=== PATIENT | male | born 1985 ===

== ENCOUNTER 2017-07-17 01:50 | Observation (INO) | payer SELFPAY ==
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
[2017-07-17 04:29] LABS: BASO # 0.1 K/uL (0.0-0.2); BASO % 0.5 % (0.0-2.0); EOS # 0.1 K/uL (0.0-0.7); EOS % 0.7 % (0.0-4.0); HEMATOCRIT 47.1 % (35.0-51.0); LYMPH # 1.2 K/uL (1.0-4.3); LYMPH % 9.2 % (20.0-40.0); MEAN CELL VOLUME 87.1 fL (80.0-94.0); MEAN CORPUSCULAR HEMOGLOBIN 29.5 pg (27.0-31.0); MEAN CORPUSCULAR HGB CONC 33.9 g/dL (33.0-37.0); MEAN PLATELET VOLUME 7.5 fL (7.2-11.7); MONO # 0.6 K/uL (0.0-0.8); MONO % 4.2 % (0.0-10.0); PLATELET COUNT 295 K/uL (130-400); RED CELL DISTRIBUTION WIDTH 13.5 % (11.5-14.5); WHITE BLOOD COUNT 13.2 K/uL (4.8-10.8)
[2017-07-17 04:36] LABS: CHLORIDE 100 mmol/L (98-107)
[2017-07-17 04:37] LABS: POTASSIUM 3.7 mmol/L (3.6-5.2); SODIUM 145 mmol/L (132-148)
[2017-07-17 04:39] LABS: ALB/GLOB RATIO 1.3 (1.0-2.1); ALKALINE PHOSPHATASE 82 U/L (38-126); AST/SGOT 35 U/L (17-59); BILIRUBIN,TOTAL 0.6 mg/dL (0.2-1.3); BLOOD UREA NITROGEN 8 mg/dL (9-20); CARBON DIOXIDE 25 mmol/L (22-30); GFR AFRICAN-AMERICAN > 60; GLUCOSE,RANDOM 103 mg/dL (75-110); TOTAL PROTEIN 9.1 g/dL (6.3-8.3)
[2017-07-17 04:40] LABS: ALT/SGPT 47 U/L (21-72); CALCIUM 9.5 mg/dl (8.6-10.4)
[2017-07-17 05:07] LABS: EOSINOPHIL 2 % (0-4); NEUTROPHIL 84 % (50-75); TOTAL CELLS COUNTED 100
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
[2017-07-17 10:58] VITALS: BP 110/64; PULSE 68; RESP 18; TEMP 98; O2SAT 99
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
== END 2017-07-17 10:38 | disposition home or self-care (01) ==
LOC: C.ER 01:50 → C.9OBSV 04:06
PROVIDERS: ADMIT Emergency Medicine; ATTEND Emergency Medicine
DX: S06.300A Unspecified focal traumatic brain injury without loss of consciousness, initial encounter (principal); S02.119A Unspecified fracture of occiput, initial encounter for closed fracture; S02.2XXA Fracture of nasal bones, initial encounter for closed fracture; Y09 Assault by unspecified means; J32.4 Chronic pansinusitis
CPT/HCPCS: 70450; 70486; 72125; 80053; 85025; 85610; 85730; 96374; 96375; 96376; 99285; G0378; J2270; J2405

== ENCOUNTER 2017-07-22 13:38 | Emergency (ER) | payer SELFPAY ==
[2017-07-22 13:57] VITALS: BP 111/73; PULSE 74; RESP 16; TEMP 98; O2SAT 98
[2017-07-22] MEDS ORDERED: Albuterol-Ipratrop 3 mg / 0.5 (3 ml) UD ONE (14:33)
[2017-07-22] MEDS ORDERED: EPINEPHrine 1 mg/ml (1:1000) Inj ONE (14:36)
[2017-07-22] MEDS ORDERED: Naproxen 550 mg Tab PO STA (14:47)
[2017-07-22] MEDS ORDERED: Naproxen 550 mg Tab PO ONE (14:51)
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
--- NOTE | 2017-07-22 17:04 | RAD ---
PROCEDURE: Radiographs of the Lumbar Spine. HISTORY: pain COMPARISON: No prior. FINDINGS: BONES: Normal alignment. No listhesis. No fracture. DISC SPACES: Unremarkable. OTHER FINDINGS: None. IMPRESSION: Unremarkable radiographs of the lumbar spine.
== END 2017-07-22 16:02 | disposition home or self-care (01) ==
LOC: C.ER 13:38
DX: M54.5 Low back pain (principal)